=== PATIENT | female | born 1975 ===

== ENCOUNTER 2016-10-09 19:32 | Observation (INO) ==
[2016-10-09] MEDS ORDERED: methylPREDNISolone SOD SUC 125 MG/2 ML VIAL IV STA (20:06)
[2016-10-09] MEDS ORDERED: ALBUTEROL/IPRATROPIUM 3 ML NEB RESP TX STA (20:06)
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
[2016-10-09 20:29] LABS: ABG Base Excess -5.4 MMOL/L (-2.5-2.5); ABG Oxygen Saturation 96.5 % (95-100); ABG PCO2 33.2 MM HG (35-48); ABG PH 7.366 (7.35-7.45); ABG PO2 85.5 MM HG (80-95); ABG TCO2 16.7 MMOL/L (23-27); Allen Test Positive; Pt O2 Delivery Device Room Air
[2016-10-09] MEDS ORDERED: methylPREDNISolone SOD SUC 125 MG/2 ML VIAL ONE (20:45)
--- NOTE | 2016-10-09 20:45 | XRay Report ---
XR chest 2V Date: 10/09/2016 8:06 PM History: Shortness of breath Comparison: 05/01/2016 Technique: PA and lateral chest Findings: The heart is normal in size. Minimal atelectasis at the left lung base with minimal overexpansion of the lungs. Unremarkable mediastinum and osseous structures. Impression: The lungs are over expanded which can be seen with deep inspiration, reactive airway disease, or COPD. Minimal atelectasis at the left lung base. PROCEDURE INTERPRETED AT [facility] DEPARTMENT OF RADIOLOGY Final Report Signed by: Dr. Yvonne Colby
[2016-10-09 21:16] LABS: Basophils % 0.3 % (0.0-0.8); Eosinophils # 0.1 10*3/uL (0.0-0.87); Hematocrit 38.4 VOL% (35.7-47.0); Hemoglobin 13.1 GM/DL (12.0-16.0); Immature Granulocytes % 0.7 %; Immature Granulocytes Absolute 0.06 #; Lymphocytes # 2.5 10*3/uL (1.4-4.0); Lymphocytes % 29.2 % (21.3-54.2); Mean Corpuscular HGB Conc 34.1 GM/DL (32-36); Mean Corpuscular Hemoglobin 31 PG (27-34); Mean Corpuscular Volume 91.4 FL (87-102); Mean Platelet Volume 10.9 FL (9.6-12.0); Monocytes # 0.6 10*3/uL (0.11-0.8); Monocytes % 7.2 % (1.7-12.7); Neutrophils # 5.3 10*3/uL (1.4-7.4); Neutrophils % 61.6 % (38.7-73.9); Platelet Count 207 T/CUMM (130-400); White Blood Count 8.6 T/CUMM (4-12)
[2016-10-09 21:29] LABS: Barbiturates Screen,Urine Negative (Negative); Benzodiazepines Screen,Urine Negative (Negative); Cannabinoid Screen,Urine Negative (Negative); Opiate Screen,Urine Negative (Negative); Phencyclidine Screen,Urine Negative (Negative)
[2016-10-09 21:31] LABS: Ammonia 68 UMOL/L (11-32)
[2016-10-09 21:48] LABS: Salicylate < 2.8 MG/DL (2.8-20)
[2016-10-09 21:49] LABS: Acetaminophen < 2.0 UG/ML (10-30); Alanine Aminotransferase 13 U/L (13-56); Albumin 2.9 G/DL (3.4-5.0); Alkaline Phosphatase 130 U/L (45-117); Aspartate Amino Transferase 11 U/L (0-37); Bilirubin,Total < 0.39 MG/DL (0.2-1.0); Blood Urea Nitrogen 10 MG/DL (7-18); Calcium 8.5 MG/DL (8.5-10.1); Glucose 365 MG/DL (74-106); Osmolality,Calculated 296.1 MOS/KG (273-304); Potassium 3.7 MMOL/L (3.5-5.1); Sodium 142 MMOL/L (136-145); Total Protein 7.1 G/DL (6.4-8.3)
--- NOTE | 2016-10-09 22:48 | Hospitalist History & Physical ---
Assessment and Plan (1) Suicidal ideation Status: Acute Current Visit: Yes (2) Huffing Status: Acute Current Visit: Yes (3) Diabetes mellitus Status: Chronic Assessment and plan: Our plan for this patient will be admit her to our service. Consult social group worker for psychiatric management. She is medically stable. Continue home meds as appropriate. When a bed at this available at [facility] she can be transferred there Current Visit: No Qualifiers: Diabetes mellitus complication status: with other specified complication History of Present Illness Chief complaint: Suicidal ideation History of present illness: Ms. Hayes is a 40 year old female with past medical history significant for depression diabetes ulcers who was in her normal state of health today. Patient just got word that her ex- had a few months ago. She felt very depressed. She felt so bad that she tried to hurt herself. She used to chamorro paint years ago but has not in 6 years according to the patient. A friend called EMS saying that she was trying to hurt herself. Patient was supposedly asking for a nice that she could cut herself. [facility] evaluated [facility] and she has spent time in [facility] before. They did not have any beds and I was consulted to admit her. Per review her of her labs she is medically stable she does have a high glucose which I suspect is not unusual for her. Home Medications Medication Instructions Recorded Confirmed Type Metformin HCl 500 mg PO DAILY 02/19/16 05/02/16 History Allergies Allergy/AdvReac Type Severity Reaction Status Date / Time clindamycin Allergy Severe Seizure Unverified 03/14/15 07:45 levofloxacin [From Levaquin] Allergy Intermediate RASH Unverified 03/14/15 07:44 morphine Allergy Intermediate RASH Unverified 03/14/15 07:44 Sulfa (Sulfonamide Allergy Intermediate RASH Unverified 03/14/15 07:44 Antibiotics) acetaminophen [From Percocet] Allergy Mild ITCHING Unverified 03/14/15 07:46 adhesive Allergy Mild RASH Unverified 03/14/15 07:44 atorvastatin [From Lipitor] Allergy Mild HIVES Unverified 03/14/15 07:44 hydrocodone [From [facility]] Allergy Mild RASH Unverified 03/14/15 07:44 metoclopramide [From Reglan] Allergy Mild RASH Unverified 03/14/15 07:44 Oxycodone [From Percocet] Allergy Mild RASH Unverified 03/14/15 07:44 tramadol [From Ultram] Allergy Mild RASH Unverified 03/14/15 07:44 Medical,Surgical,& Family Hx - Medical History Psychological: History of: Anxiety Disorders, Depression Endocrine: History of: Diabetes Mellitus (IDDM), Diabetes Mellitus (NIDDM) Respiratory: History of: Asthma - Surgical History Additional Surgical History: None - Family History Family History: Reports;: Family Cancer Additional Family History: Renal disease - Social History Smoking Status: Former smoker Frequency of Alcohol Use: Frequently Type of Drug Use: Unknown 12 point system: reviewed and no additional remarkable complaints except as stated Exam - Constitutional Vitals: Period Temp Pulse Resp BP Sys/Starr Pulse Ox Last 24 Hr 98.6 F 93-96 16-20 144/84 98-100 General appearance: no acute distress, over weight - Head Head exam: Present: normal inspection - Eye Eye exam: Present: EOMI Pupils: Present: AMINA - ENT ENT exam: Present: normal exam - Neck Neck exam: Present: normal inspection - Respiratory Respiratory exam: Present: clear to auscultation bilaterally - Cardiovascular Cardiovascular exam: Present: regular rate and rhythm - GI/Abdominal GI/Abdominal exam: Present: normal bowel sounds - Extremities Exam Extremities exam: Present: normal inspection - Back Exam Back exam: Present: normal inspection - Neurological Exam Neurological exam: Present: alert - Psychiatric Psychiatric exam: Present: normal affect - Skin Skin exam: Present: normal color Results - Labs CBC & BMP: 10/09/16 21:03 10/09/16 21:03
[2016-10-09] MEDS ORDERED: NICOTINE 21 MG/24 HR PATCH TRANSDERM PRN (22:58)
[2016-10-09] MEDS ORDERED: ZALEPLON 5 MG CAPSULE PO PRN (22:58)
[2016-10-09] MEDS ORDERED: ONDANSETRON 4 MG/2 ML VIAL IV PRN (22:58)
[2016-10-09] MEDS ORDERED: DEXTROSE 50% 25 GM/50 ML VIAL IV PRN (22:58)
[2016-10-09] MEDS ORDERED: GLUCAGON 1 MG VIAL IM PRN (22:58)
[2016-10-10] MEDS: INSULIN REGULAR 100 UNIT/ML SUBCUT SCH ×2 (08:38→12:11)
[2016-10-10] MEDS ORDERED: PANTOPRAZOLE 40 MG TABLET PO SCH (09:00)
[2016-10-10] MEDS ORDERED: PARoxetine 10 MG TABLET PO SCH (09:00)
--- NOTE | 2016-10-10 09:03 | Discharge Summary ---
Hospital Course - Hospital Course Hospital Course: 40-year-old Rosa female with a history of depression and diabetes who started having suicidal ideations. Her ex- had a few months ago when she had not been told that he . She used a chamorro paint in the past and told her friend she wanted to cut herself but never did. She is willing and wanting to go some place for counseling. [facility] is full. She has requested [facility] but we will see what [facility] will pay for. There is no psychiatrist at this facility so she is not obtaining any benefit from being here. - Time spent with patient Time with patient DS: Less than 30 minutes Discharge Plan - Discharge Data Disposition: Psych Hosp W Plan Readmit Condition at Discharge: Stable Discharge Diet: regular diet Activity: resume usual activities as tolerated Hygiene: no restrictions Weight Bearing at Discharge: full weight bearing - Discharge Medications New PARoxetine [Paxil] 10 mg PO BID #60 tablet Changed Metformin HCl 500 mg PO BID #60 tablet Discontinued Paroxetine HCl [Paxil] 40 mg PO DAILY - Follow Up or Referral - Forms/Instructions Exam - Constitutional Vitals: Period Temp Pulse Resp BP Sys/Starr Pulse Ox Last 24 Hr 97.5 F-98.0 F 91-99 19-34 111-155/62-94 92-95 General appearance: normal weight, no acute distress - Respiratory Respiratory exam: Present: clear to auscultation bilaterally. Absent: rhonchi, wheezes - Cardiovascular Cardiovascular exam: Present: regular rate and rhythm. Absent: systolic murmur - GI/Abdominal GI/Abdominal exam: Present: normal bowel sounds, soft - Neurological Exam Neurological exam: Present: alert, oriented X3 Discharge Results Procedures and tests throughout hospitalization: Pending Orders 10/10/16 00:35 MRSA Surveillence, Inf Control Routine Labs on day of discharge: Labs from last 24 hours 10/10/16 07:55 POC Glucose 309 H DS: Provider Date of admission: 10/09/16 22:58 Primary care physician: Rosa Tsai MD Attending physician on admission: Lexis Islas MD Discharging clinician: Lexis Islas MD
[2016-10-10 09:34] VITALS: BP 125/83
[2016-10-10 14:04] LABS: PT Patient Result 10.9 SECS; Partial Thromboplastin Time 31.4 SECS (0-40)
--- NOTE | 2016-10-10 15:15 | Ultrasound Report ---
US liver Indication: elevated ammonia level. Comparison: 02/09/2014. Technique: Multiple longitudinal and transverse real-time sonographic images of the right upper quadrant of the abdomen are obtained. Findings: The liver measures 16.1 cm and demonstrates normal somewhat increased echogenicity. Evaluation for subtle focal lesions could be obscured. Gallbladder is removed. The common duct measures 0.67 cm in diameter and there is no evidence of intrahepatic ductal dilation. Right kidney measures 9.6 cm craniocaudal. There is no hydronephrosis or focal abnormality identified. There is no ascites. The pancreas is obscured due to overlying bowel gas. IMPRESSION: Study somewhat limited due to obscuration of structures by overlying bowel gas. No definite focal sonographic and around the right upper quadrant. Suggestion of increased echogenicity throughout the hepatic parenchyma which may be due to fatty infiltration.. Ultrasound images were captured and stored. PROCEDURE INTERPRETED AT [facility] DEPARTMENT OF RADIOLOGY Final Report Signed by: Aidan Woods
[2016-10-10] MEDS ORDERED: LACTULOSE 20 GM/30 ML UDCUP PO SCH ×2 (15:28→18:00)
[2016-10-10] MEDS ORDERED: metFORMIN 500 MG TABLET PO SCH (17:00)
== END 2016-10-10 15:55 ==
LOC: EDUNIT# → EDBD → N.EDINP 19:32 → N.ED 19:32 → N.ICU 23:45
PROVIDERS: ADMIT Internal Medicine; ATTEND Internal Medicine

== ENCOUNTER 2016-12-15 13:39 | Inpatient (IN) ==
[2016-12-15] MEDS ORDERED: DIPH/TET/ACEL PERT BOOSTER VACCINE 0.5 ML VIAL IM ONE ×2 (14:10→14:32)
[2016-12-15] MEDS ORDERED: LACTATED RINGERS 500 ML IV STA (14:10)
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
[2016-12-15 14:52] LABS: Basophils % 0.3 % (0.0-0.8); Eosinophils % 0.3 % (0.00-10.9); Hematocrit 35.1 VOL% (35.7-47.0); Hemoglobin 12.1 GM/DL (12.0-16.0); Immature Granulocytes % 0.2 %; Immature Granulocytes Absolute 0.02 #; Lymphocytes # 1.8 10*3/uL (1.4-4.0); Lymphocytes % 20.5 % (21.3-54.2); Mean Corpuscular HGB Conc 34.5 GM/DL (32-36); Mean Corpuscular Hemoglobin 30 PG (27-34); Mean Corpuscular Volume 86.7 FL (87-102); Mean Platelet Volume 10.4 FL (9.6-12.0); Monocytes # 0.7 10*3/uL (0.11-0.8); Neutrophils # 6.2 10*3/uL (1.4-7.4); Neutrophils % 70.7 % (38.7-73.9); Platelet Count 184 T/CUMM (130-400); Red Blood Count 4.05 MC/CUMM (3.8-5.5); White Blood Count 8.8 T/CUMM (4-12)
--- NOTE | 2016-12-15 14:53 | XRay Report ---
Portable chest Date: 12/15/2016 Clinical history: Chest injury Comparison: 10/09/2016 Technique: Portable AP sitting chest Findings: The heart is normal in size. Expiratory chest with progressive parenchymal findings in the lungs especially in the right upper lobe and in the lower lobes. No definite pneumothorax is identified. Acute right sixth and seventh rib fractures noted laterally. Impression: Expiratory chest with atelectasis/contusion in the right upper lobe and in the lower lobes. Acute fractures of the right sixth and seventh ribs with no pneumothorax. PROCEDURE INTERPRETED AT [facility] DEPARTMENT OF RADIOLOGY Final Report Signed by: Dr. Yvonne Colby
[2016-12-15 15:02] LABS: INR 1.1; PT Patient Result 11.3 SECS
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
[2016-12-15 15:08] LABS: Partial Thromboplastin Time 40.2 SECS (0-40)
[2016-12-15 15:15] LABS: Alanine Aminotransferase 15 U/L (13-56); Albumin 3.2 G/DL (3.4-5.0); Alkaline Phosphatase 94 U/L (45-117); Amylase 53 U/L (25-115); Aspartate Amino Transferase 32 U/L (0-37); Blood Urea Nitrogen 13 MG/DL (7-18); Calcium 8.6 MG/DL (8.5-10.1); Glucose 224 MG/DL (74-106); Potassium 3.4 MMOL/L (3.5-5.1); Sodium 136 MMOL/L (136-145); Total Protein 7.5 G/DL (6.4-8.3)
[2016-12-15] MEDS ORDERED: ONDANSETRON 4 MG/2 ML VIAL IV STA (16:28)
[2016-12-15] MEDS ORDERED: HYDROmorphone 2 MG/1 ML VIAL IV STA (16:28)
[2016-12-15] MEDS ORDERED: HYDROmorphone 2 MG/1 ML VIAL ONE (16:43)
[2016-12-15] MEDS ORDERED: ONDANSETRON 4 MG/2 ML VIAL ONE (16:43)
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
[2016-12-15] MEDS ORDERED: BISACODYL 5 MG TABLET PO PRN (20:18)
[2016-12-15] MEDS ORDERED: HYDROmorphone 2 MG/1 ML VIAL IV PRN (20:18)
[2016-12-15] MEDS ORDERED: DEXTROSE 50% 25 GM/50 ML VIAL IV PRN (20:18)
[2016-12-15] MEDS ORDERED: ONDANSETRON 4 MG/2 ML VIAL IV PRN (20:18)
[2016-12-15] MEDS ORDERED: ACETAMINOPHEN 325 MG TABLET PO PRN ×2 (20:18)
[2016-12-15] MEDS ORDERED: CYCLOBENZAPRINE 10 MG TABLET PO PRN (20:18)
[2016-12-15] MEDS ORDERED: GLUCAGON 1 MG VIAL IM PRN (20:18)
[2016-12-15] MEDS ORDERED: ALUMINUM/MAGNES/SIMETH MAX STR 30 ML UDCUP PO PRN (20:18)
[2016-12-15] MEDS: DOCUSATE SODIUM 100 MG CAPSULE PO SCH (21:07)
[2016-12-15] MEDS: KETOROLAC 15 MG/1 ML VIAL IV SCH (21:07)
[2016-12-15] MEDS: INSULIN REGULAR 100 UNIT/ML SUBCUT SCH (21:07)
[2016-12-15] MEDS: LACTATED RINGERS 1,000 ML IV SCH (21:07)
[2016-12-15] MEDS: risperiDONE 1 MG TABLET PO SCH (21:08)
[2016-12-16] MEDS: ALBUTEROL 2.5 MG/3 ML NEB RESP TX SCH ×8 (00:58→23:38)
[2016-12-16] MEDS: KETOROLAC 15 MG/1 ML VIAL IV SCH ×4 (04:10→20:00)
[2016-12-16 04:24] LABS: ABG Base Excess -2.7 MMOL/L (-2.5-2.5); ABG HCO3 22.1 MMOL/L (20-26); ABG Oxygen Saturation 93.9 % (95-100); ABG PCO2 37.1 MM HG (35-48); ABG PH 7.381 (7.35-7.45); ABG PO2 70.2 MM HG (80-95); ABG TCO2 19.9 MMOL/L (23-27); Allen Test Positive; Pt O2 Delivery Device Room Air
[2016-12-16 04:46] LABS: Basophils % 0.5 % (0.0-0.8); Eosinophils # 0.1 10*3/uL (0.0-0.87); Eosinophils % 1.1 % (0.00-10.9); Hematocrit 32.1 VOL% (35.7-47.0); Hemoglobin 10.8 GM/DL (12.0-16.0); Immature Granulocytes % 0.5 %; Immature Granulocytes Absolute 0.03 #; Lymphocytes % 47.6 % (21.3-54.2); Mean Corpuscular HGB Conc 33.6 GM/DL (32-36); Mean Corpuscular Hemoglobin 30 PG (27-34); Mean Corpuscular Volume 87.9 FL (87-102); Monocytes # 0.5 10*3/uL (0.11-0.8); Monocytes % 7.1 % (1.7-12.7); Neutrophils # 2.7 10*3/uL (1.4-7.4); Neutrophils % 43.2 % (38.7-73.9); Platelet Count 179 T/CUMM (130-400); Red Blood Count 3.65 MC/CUMM (3.8-5.5); Red Cell Distribution Width 13.2 % (9.3-17.3); White Blood Count 6.3 T/CUMM (4-12)
[2016-12-16] MEDS: LACTATED RINGERS 1,000 ML IV SCH ×2 (05:04→12:23)
[2016-12-16 05:18] LABS: Albumin 2.9 G/DL (3.4-5.0); Bilirubin,Total 0.6 MG/DL (0.2-1.0); Calcium 8.2 MG/DL (8.5-10.1); Osmolality,Calculated 286.3 MOS/KG (273-304); Potassium 3.3 MMOL/L (3.5-5.1); Total Protein 6.5 G/DL (6.4-8.3)
[2016-12-16] MEDS: risperiDONE 1 MG TABLET PO SCH ×2 (08:42→20:00)
[2016-12-16] MEDS: DOCUSATE SODIUM 100 MG CAPSULE PO SCH ×2 (08:43→20:00)
[2016-12-16] MEDS: PANTOPRAZOLE 40 MG TABLET PO SCH (08:43)
[2016-12-16] MEDS: INSULIN REGULAR 100 UNIT/ML SUBCUT SCH ×4 (08:43→20:00)
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
--- NOTE | 2016-12-16 12:04 | General Surgery Progress Note ---
Assessment and Plan - Time spent with patient Time spent with patient: Less than 30 minutes (1) Pulmonary contusion Status: Acute Assessment and plan: 12/16/2016. Stable pulmonary contusion posttrauma. We will add incentive spirometry and watch closely. Repeat chest x-ray as indicated. Current Visit: Yes Qualifiers: Laterality: right (2) Ribs, multiple fractures Status: Acute Assessment and plan: 12/16/2016. Multiple rib fractures secondary to trauma. Patient is quite uncomfortable, and request additional pain medication. Will go ahead and consult pain treatment to see if should they can help us with intercostal blocks. Current Visit: Yes Qualifiers: Encounter type: initial encounter Fracture type: closed Laterality: right Qualified Code(s): S22.41XA - Multiple fractures of ribs, right side, initial encounter for closed fracture Subjective Patient reports: Present: still having pain, tolerating a regular diet, no bowel movement (Since Thursday), shortness of breath. Absent: nausea, vomiting Exam - Constitutional Vitals: Period Temp Pulse Resp BP Sys/Starr Pulse Ox Last 24 Hr 97.2 F-98.2 F 67-98 16-20 104-164/58-74 94-99 General appearance: other (She is an anxious appearing [place] female. She is not in any acute cardiac or respiratory distress, however she is a bit reluctant to breathe deeply due to pain) - Head Head exam: Present: abrasion (Contusions and abrasions with hematoma about the right orbit.), contusion - Eye Eye exam: Present: periorbital swelling (Right. She is scheduled to travel to Dr. Tam's office for ophthalmology exam later today.) - ENT Mouth exam: Present: normal voice, dry mucosa - Neck Neck exam: Present: other (Mildly tender to range of motion.) - Respiratory Respiratory exam: Present: chest wall tenderness (She is very tender chest wall. ), rhonchi, other (Poor inspiratory expiratory effort secondary to). Absent: stridor, wheezes - Cardiovascular Cardiovascular exam: Present: RRR - GI/Abdominal GI/Abdominal exam: Present: hypoactive bowel sounds, soft. Absent: distended, organomegaly, rebound Results - Labs CBC & BMP: 12/16/16 03:53 12/16/16 03:53 Lab Results: I have reviewed the past 24 hour labs (Labs are stable.) Quality Measures - VTE Contraindication to Pharmacological VTE Prophylaxis: High Risk of Bleeding
[2016-12-16] MEDS ORDERED: TRIAMCINOLONE ACETONIDE 40 MG/1 ML VIAL MISC INJ ONE (13:39)
[2016-12-16] MEDS ORDERED: ROPIVACAINE 0.5% 30 ML VIAL MISC INJ ONE (13:39)
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
[2016-12-17] MEDS: LACTATED RINGERS 1,000 ML IV SCH ×2 (00:02→10:47)
[2016-12-17] MEDS: KETOROLAC 15 MG/1 ML VIAL IV SCH ×4 (02:55→21:35)
[2016-12-17] MEDS: ALBUTEROL 2.5 MG/3 ML NEB RESP TX SCH ×6 (04:18→23:10)
[2016-12-17] MEDS: INSULIN REGULAR 100 UNIT/ML SUBCUT SCH ×4 (10:10→21:35)
[2016-12-17] MEDS: DOCUSATE SODIUM 100 MG CAPSULE PO SCH ×2 (10:11→21:35)
[2016-12-17] MEDS: risperiDONE 1 MG TABLET PO SCH ×2 (10:11→21:34)
[2016-12-17] MEDS: PANTOPRAZOLE 40 MG TABLET PO SCH (10:11)
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
[2016-12-18] MEDS: KETOROLAC 15 MG/1 ML VIAL IV SCH ×3 (02:58→13:56)
[2016-12-18] MEDS: ALBUTEROL 2.5 MG/3 ML NEB RESP TX SCH ×3 (03:20→11:33)
[2016-12-18] MEDS ORDERED: ROPIVACAINE 0.5% 30 ML VIAL MISC INJ ONE (08:20)
[2016-12-18] MEDS ORDERED: TRIAMCINOLONE ACETONIDE 40 MG/1 ML VIAL MISC INJ ONE (08:20)
[2016-12-18] MEDS: PANTOPRAZOLE 40 MG TABLET PO SCH (08:51)
[2016-12-18] MEDS: DOCUSATE SODIUM 100 MG CAPSULE PO SCH (08:51)
[2016-12-18] MEDS: risperiDONE 1 MG TABLET PO SCH (08:51)
[2016-12-18] MEDS: INSULIN REGULAR 100 UNIT/ML SUBCUT SCH ×2 (09:00→12:06)
[2016-12-18 11:49] VITALS: BP 135/84
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
== END 2016-12-18 14:08 | disposition swing bed (61) | DRG 184 ==
LOC: EDBD → EDUNIT# → N.ED 13:39 → N.EDINP 16:23 → N.3E 18:42
PROVIDERS: ADMIT Specialist; ATTEND Specialist

== ENCOUNTER 2017-07-03 17:17 | Observation (INO) ==
[2017-07-03] MEDS ORDERED: SODIUM CHLORIDE 0.9% 1,000 ML IV STA (17:59)
[2017-07-03 18:25] LABS: ABG Base Excess -3.9 MMOL/L (-2.5-2.5); ABG HCO3 21.2 MMOL/L (20-26); ABG Oxygen Saturation 97.2 % (95-100); ABG PH 7.392 (7.35-7.45); ABG PO2 89.1 MM HG (80-95); ABG TCO2 17.4 MMOL/L (23-27)
[2017-07-03 18:55] LABS: Basophils # 0.1 10*3/uL (0.0-0.2); Basophils % 0.7 % (0.0-0.8); Eosinophils # 0.2 10*3/uL (0.0-0.87); Eosinophils % 2.3 % (0.00-10.9); Hematocrit 39.4 VOL% (35.7-47.0); Hemoglobin 13.7 GM/DL (12.0-16.0); Immature Granulocytes % 0.6 %; Immature Granulocytes Absolute 0.05 #; Lymphocytes # 3.2 10*3/uL (1.4-4.0); Lymphocytes % 36.3 % (21.3-54.2); Mean Corpuscular HGB Conc 34.8 GM/DL (32-36); Mean Corpuscular Hemoglobin 32 PG (27-34); Mean Corpuscular Volume 92.7 FL (87-102); Mean Platelet Volume 10.2 FL (9.6-12.0); Monocytes # 0.5 10*3/uL (0.11-0.8); Monocytes % 5.8 % (1.7-12.7); Neutrophils # 4.8 10*3/uL (1.4-7.4); Neutrophils % 54.3 % (38.7-73.9); Platelet Count 208 T/CUMM (130-400); Red Blood Count 4.25 MC/CUMM (3.8-5.5); Red Cell Distribution Width 13.8 % (9.3-17.3); White Blood Count 8.8 T/CUMM (4-12)
[2017-07-03 19:02] LABS: Alanine Aminotransferase 18 U/L (13-56); Albumin 3.2 G/DL (3.4-5.0); Alkaline Phosphatase 112 U/L (45-117); Aspartate Amino Transferase 9 U/L (0-37); Bilirubin,Total < 0.39 MG/DL (0.2-1.0); Blood Urea Nitrogen 14 MG/DL (7-18); Calcium 8.7 MG/DL (8.5-10.1); Glucose 221 MG/DL (74-106); Potassium 3.6 MMOL/L (3.5-5.1); Sodium 143 MMOL/L (136-145); Total Protein 7.7 G/DL (6.4-8.3)
[2017-07-03 19:42] LABS: Apearance,Urine Clear (Clear); Bilirubin,Urine Negative (Negative); Blood, Urine Small mg/dL (Negative); Glucose,Urine (UA) 50 mg/dL (Negative); Ketones,Urine 5 mg/dL (Negative); Nitrite,Urine Negative (Negative); Protein,Urine Negative; RBC,Urine 1 /HPF (0-4); Squamous Epithelial Cell,Urine Occasional /HPF (0-10); Transitional Epi Cells,Urine Occasional /HPF (<1); Urine Color Yellow (Yellow); Urine Specific Gravity 1.029 (1.001-1.035); WBC,Urine 1 /HPF (0-6)
[2017-07-03 19:50] LABS: Barbiturates Screen,Urine Negative (Negative); Benzodiazepines Screen,Urine Negative (Negative); Cannabinoid Screen,Urine Negative (Negative); Opiate Screen,Urine Negative (Negative); Phencyclidine Screen,Urine Negative (Negative)
[2017-07-03] MEDS ORDERED: THIAMINE INJ 100 MG, FOLIC ACID INJ 1 MG, MULTIVITAMIN INJ 10 ML in DEXTROSE 5% NACL 0.... IV ONE (20:28)
[2017-07-03] MEDS ORDERED: DEXTROSE 50% 25 GM/50 ML VIAL IV PRN (20:30)
[2017-07-03] MEDS ORDERED: GLUCAGON 1 MG VIAL IM PRN (20:30)
[2017-07-03] MEDS ORDERED: ENOXAPARIN 40 MG/0.4 ML SYRINGE SUBCUT SCH (20:30)
[2017-07-03] MEDS ORDERED: ONDANSETRON 4 MG/2 ML VIAL IV PRN (20:30)
[2017-07-03] MEDS ORDERED: LORazepam 2 MG/1 ML VIAL IV PRN (21:20)
[2017-07-03] MEDS ORDERED: KETOROLAC 15 MG/1 ML VIAL IV PRN (21:29)
[2017-07-03] MEDS: INSULIN LISPRO 100 UNIT/ML SUBCUT SCH (22:17)
[2017-07-04 03:47] LABS: Basophils # 0.1 10*3/uL (0.0-0.2); Basophils % 0.6 % (0.0-0.8); Eosinophils # 0.2 10*3/uL (0.0-0.87); Eosinophils % 2.8 % (0.00-10.9); Hematocrit 38.1 VOL% (35.7-47.0); Hemoglobin 13.1 GM/DL (12.0-16.0); Immature Granulocytes % 0.5 %; Immature Granulocytes Absolute 0.04 #; Lymphocytes % 36.4 % (21.3-54.2); Mean Corpuscular HGB Conc 34.4 GM/DL (32-36); Mean Corpuscular Hemoglobin 32 PG (27-34); Mean Corpuscular Volume 91.6 FL (87-102); Mean Platelet Volume 10.7 FL (9.6-12.0); Monocytes # 0.5 10*3/uL (0.11-0.8); Monocytes % 5.8 % (1.7-12.7); Neutrophils # 4.4 10*3/uL (1.4-7.4); Neutrophils % 53.9 % (38.7-73.9); Platelet Count 202 T/CUMM (130-400); Red Blood Count 4.16 MC/CUMM (3.8-5.5); Red Cell Distribution Width 13.7 % (9.3-17.3); White Blood Count 8.1 T/CUMM (4-12)
[2017-07-04 05:27] LABS: Calcium 8.6 MG/DL (8.5-10.1); Potassium 3.6 MMOL/L (3.5-5.1)
[2017-07-04] MEDS: INSULIN LISPRO 100 UNIT/ML SUBCUT SCH ×2 (09:15→13:06)
[2017-07-04] MEDS ORDERED: BISACODYL 5 MG TABLET PO PRN (09:33)
[2017-07-04] MEDS ORDERED: ACETAMINOPHEN 325 MG TABLET PO PRN (09:33)
[2017-07-04] MEDS ORDERED: CYCLOBENZAPRINE 10 MG TABLET PO PRN (09:33)
[2017-07-04] MEDS ORDERED: ALUMINUM/MAGNES/SIMETH MAX STR 30 ML UDCUP PO PRN (09:33)
[2017-07-04] MEDS ORDERED: GLUCAGON 1 MG VIAL IM PRN (09:33)
[2017-07-04] MEDS ORDERED: metFORMIN 500 MG TABLET PO SCH (09:45)
[2017-07-04] MEDS ORDERED: risperiDONE 1 MG TABLET PO SCH (10:00)
[2017-07-04] MEDS ORDERED: DOCUSATE SODIUM 100 MG CAPSULE PO SCH (10:00)
[2017-07-04] MEDS ORDERED: PANTOPRAZOLE 40 MG TABLET PO SCH (10:00)
[2017-07-04] MEDS ORDERED: ALBUTEROL 2.5 MG/3 ML NEB RESP TX SCH (11:00)
[2017-07-04 11:43] VITALS: BP 117/75
== END 2017-07-04 14:26 | disposition home or self-care (01) ==
LOC: EDUNIT# → EDBD → N.EDINP 17:17 → N.ED 17:17 → SUATTDRO 20:27 → N.5E 20:48
PROVIDERS: ADMIT Pediatrics

== ENCOUNTER 2017-07-10 09:36 | Inpatient (IN) ==
[2017-07-10 09:44] VITALS: BP 137/94
[2017-07-10] MEDS ORDERED: SODIUM CHLORIDE 0.9% 1,000 ML IV STA (09:44)
[2017-07-10 09:56] LABS: ABG Base Excess -5.7 MMOL/L (-2.5-2.5); ABG HCO3 19.7 MMOL/L (20-26); ABG Oxygen Saturation 93.6 % (95-100); ABG PCO2 31.6 MM HG (35-48); ABG PH 7.374 (7.35-7.45); ABG PO2 69.7 MM HG (80-95); Allen Test Positive; Pt O2 Delivery Device Room Air
[2017-07-10 09:59] LABS: Basophils % 0.1 % (0.0-0.8); Hematocrit 41.6 VOL% (35.7-47.0); Hemoglobin 14.8 GM/DL (12.0-16.0); Immature Granulocytes % 0.4 %; Immature Granulocytes Absolute 0.03 #; Lymphocytes # 0.8 10*3/uL (1.4-4.0); Lymphocytes % 9.8 % (21.3-54.2); Mean Corpuscular HGB Conc 35.6 GM/DL (32-36); Mean Corpuscular Hemoglobin 31 PG (27-34); Mean Corpuscular Volume 88.3 FL (87-102); Mean Platelet Volume 10.4 FL (9.6-12.0); Monocytes # 0.1 10*3/uL (0.11-0.8); Monocytes % 0.6 % (1.7-12.7); Neutrophils # 7.4 10*3/uL (1.4-7.4); Neutrophils % 89.1 % (38.7-73.9); Platelet Count 198 T/CUMM (130-400); Red Blood Count 4.71 MC/CUMM (3.8-5.5); Red Cell Distribution Width 13.3 % (9.3-17.3); White Blood Count 8.3 T/CUMM (4-12)
[2017-07-10 10:24] LABS: Band Neutrophils 1 % (0-10); Lymphocytes 10 % (20-55); Segmented Neutrophils 86 % (50-85); Total Cells Counted 100
[2017-07-10 10:25] LABS: Microcytosis Slight; Platelet Estimate Adequate
[2017-07-10 10:34] LABS: Albumin 3.4 G/DL (3.4-5.0); Bilirubin,Total 0.4 MG/DL (0.2-1.0); Calcium 8.8 MG/DL (8.5-10.1); Osmolality,Calculated 294.1 MOS/KG (273-304); Potassium 3.6 MMOL/L (3.5-5.1); Total Protein 8.2 G/DL (6.4-8.3)
[2017-07-10 10:39] LABS: Apearance,Urine Slightly Hazy (Clear); Bilirubin,Urine Negative (Negative); Blood, Urine Moderate mg/dL (Negative); Glucose,Urine (UA) >=500 mg/dL (Negative); Hyaline Casts,Urine 4 /LPF (0-3); Ketones,Urine 5 mg/dL (Negative); Mucus,Urine Occasional /LPF (Occasional); Nitrite,Urine Negative (Negative); Protein,Urine 30 MG/DL; RBC,Urine 2 /HPF (0-4); Squamous Epithelial Cell,Urine Few /HPF (0-10); Urine Color Yellow (Yellow); Urine Specific Gravity 1.024 (1.001-1.035); WBC,Urine 1 /HPF (0-6)
[2017-07-10 10:53] LABS: Barbiturates Screen,Urine Negative (Negative); Benzodiazepines Screen,Urine Negative (Negative); Cannabinoid Screen,Urine Negative (Negative); Opiate Screen,Urine Negative (Negative); Phencyclidine Screen,Urine Negative (Negative)
[2017-07-10] MEDS ORDERED: MORPHINE 2 MG/1 ML SYRINGE IV PRN (12:18)
[2017-07-10] MEDS ORDERED: ONDANSETRON 4 MG/2 ML VIAL IV PRN (12:18)
[2017-07-10] MEDS ORDERED: PROMETHAZINE 25 MG/1 ML VIAL IM PRN (12:18)
[2017-07-10] MEDS ORDERED: diphenhydrAMINE CAP 25 MG CAPSULE PO PRN (12:18)
[2017-07-10] MEDS ORDERED: traZODone 50 MG TABLET PO PRN (12:18)
[2017-07-10] MEDS ORDERED: NICOTINE 21 MG/24 HR PATCH TRANSDERM PRN (12:18)
[2017-07-10] MEDS ORDERED: DEXTROSE 50% 25 GM/50 ML VIAL IV PRN (12:18)
[2017-07-10] MEDS ORDERED: ACETAMINOPHEN 325 MG TABLET PO PRN (12:18)
[2017-07-10] MEDS ORDERED: DOCUSATE SODIUM 100 MG CAPSULE PO PRN (12:18)
[2017-07-10] MEDS ORDERED: GLUCAGON 1 MG VIAL IM PRN (12:18)
[2017-07-10] MEDS ORDERED: guaiFENesin/DM ER 600-30 MG TABLET PO PRN (12:18)
[2017-07-10] MEDS ORDERED: SODIUM CHLORIDE 0.9% 1,000 ML IV SCH (12:30)
[2017-07-10] MEDS ORDERED: cefTRIAXone 1,000 MG in SYRINGE 1 EACH IV SCH (15:00)
[2017-07-10] MEDS ORDERED: INSULIN LISPRO 100 UNIT/ML SUBCUT SCH (17:00)
[2017-07-10] MEDS ORDERED: PANTOPRAZOLE 40 MG TABLET PO SCH (17:00)
[2017-07-10] MEDS ORDERED: ENOXAPARIN 40 MG/0.4 ML SYRINGE SUBCUT SCH (21:00)
== END 2017-07-10 16:30 | disposition home or self-care (01) | DRG 897 ==
LOC: N.ED 09:36 → N.EDINP 12:18 → N.2E 14:30